=== PATIENT | female | born 1960 | race American Indian/Alaskan Native ===

== ENCOUNTER 2017-05-14 12:36 | Emergency (ER) | payer BC ==
[2017-05-14 12:42] VITALS: BP 136/73
--- NOTE | 2017-05-14 12:59 | Emergency Department Report ---
- General Chief complaint: Medical Clearance Stated complaint: RASH Time Seen by Provider: 05/14/17 12:52 Source: patient Mode of arrival: Ambulatory Limitations: No Limitations - History of Present Illness Initial comments: 56-year-old female past medical history none presents with complaint of itchy rash to right shoulder and back of right thigh. Patient is a nurse in an emergency department. States she may have been exposed to scabies. States that rash has been ongoing for approximately 2 days. Denies fevers chills nausea or vomiting. States she has had encounters with multiple patients with scabies. MD complaint: rash Onset/Timin -: days(s) Location: RUE, RLE Severity: moderate Severity scale (0 -10): 3 Quality: other (itching) Consistency: constant Improves with: none Worsens with: none Context: none Associated symptoms: denies other symptoms Treatments Prior to Arrival: none - Related Data Previous Rx's Medication Instructions Recorded Last Taken Type Permethrin 5% [Acticin 5% CREAM] 1 applicatio TP ONCE #1 tube 05/14/17 Unknown Rx Allergies Allergy/AdvReac Type Severity Reaction Status Date / Time No Known Allergies Allergy Verified 05/14/17 12:43 Abscess Boil [facility] - HPI Chief Complaint: Medical Clearance Stated Complaint: RASH Time Seen by Provider: 05/14/17 12:52 Home Medications: Previous Rx's Medication Instructions Recorded Last Taken Type Permethrin 5% [Acticin 5% CREAM] 1 applicatio TP ONCE #1 tube 05/14/17 Unknown Rx Allergies/Adverse Reactions: Allergies Allergy/AdvReac Type Severity Reaction Status Date / Time No Known Allergies Allergy Verified 05/14/17 12:43 ED Review of Systems ROS: Stated complaint: RASH Other details as noted in HPI Constitutional: denies: chills, fever Eyes: denies: eye pain, eye discharge, vision change ENT: denies: ear pain, throat pain Respiratory: denies: cough, shortness of breath, wheezing Cardiovascular: denies: chest pain, palpitations Endocrine: no symptoms reported Gastrointestinal: denies: abdominal pain, nausea, diarrhea Genitourinary: denies: urgency, dysuria, discharge Musculoskeletal: denies: back pain, joint swelling, arthralgia Skin: as per HPI. denies: rash, lesions Neurological: denies: headache, weakness, paresthesias Psychiatric: denies: anxiety, depression Hematological/Lymphatic: denies: easy bleeding, easy bruising ED Past Medical Hx - Past Medical History Previous Medical History?: No - Surgical History Past Surgical History?: No - Social History Smoking Status: Never Smoker Substance Use Type: None - Medications Home Medications: Home Medications Medication Instructions Recorded Confirmed Last Taken Type Permethrin 5% [Acticin 5% CREAM] 1 applicatio TP ONCE #1 tube 05/14/17 Unknown Rx ED Physical Exam - General Limitations: No Limitations General appearance: alert, in no apparent distress - Head Head exam: Present: atraumatic, normocephalic - Eye Eye exam: Present: normal appearance, PERRL, EOMI - ENT ENT exam: Present: mucous membranes moist - Neck Neck exam: Present: normal inspection, full ROM - Respiratory Respiratory exam: Present: normal lung sounds bilaterally. Absent: respiratory distress - Cardiovascular Cardiovascular Exam: Present: regular rate, normal rhythm. Absent: systolic murmur, diastolic murmur, rubs, gallop - GI/Abdominal GI/Abdominal exam: Present: soft, normal bowel sounds - Extremities Exam Extremities exam: Present: normal inspection - Back Exam Back exam: Present: normal inspection - Neurological Exam Neurological exam: Present: alert, oriented X3, CN II-XII intact, normal gait - Psychiatric Psychiatric exam: Present: normal affect, normal mood - Skin Skin exam: Present: warm, dry, intact, normal color, rash (itchy linear rash on right shoulder and back of right thigh nonvesicular in appearance. No significant erythema or fluctuance.) ED Course Vital Signs 05/14/17 12:39 Temperature 98.5 F Pulse Rate 78 Respiratory 16 Rate Blood Pressure 136/73 O2 Sat by Pulse 99 Oximetry ED Medical Decision Making - Medical Decision Making A/P: Scabies rash 1-will treat patient empirically with permethrin cream based on exposure and clinical appearance of rash 2-Benadryl when necessary, hydrocortisone topical cream when necessary Critical care attestation.: If time is entered above; I have spent that time in minutes in the direct care of this critically ill patient, excluding procedure time. ED Disposition Clinical Impression: Scabies Disposition: DC-01 TO HOME OR SELFCARE Is pt being admited?: No Does the pt Need Aspirin: No Condition: Stable Instructions: Scabies (ED) Prescriptions: Permethrin 5% [Acticin 5% CREAM] 1 applicatio TP ONCE #1 tube Referrals: BRAD CROWE MD [Primary Care Provider] - 3-5 Days Forms: Work/School Release Form(ED) Time of Disposition: 12:53
== END 2017-05-14 13:18 | disposition home or self-care (01) ==
LOC: ED 12:36
DX: B86 Scabies (principal)
CPT/HCPCS: 99282

== ENCOUNTER 2017-06-06 10:02 | Emergency (ER) | payer BC ==
[2017-06-06 10:17] VITALS: BP 147/88
[2017-06-06] MEDS ORDERED: TYLENOL/CODEINE PO ONE (10:29)
[2017-06-06] MEDS ORDERED: DELTASONE PO ONE (10:29)
--- NOTE | 2017-06-06 10:30 | Emergency Department Report ---
HPI - General Chief Complaint: Upper Respiratory Infection Time Seen by Provider: 06/06/17 10:29 - HPI HPI: Patient is a 56-year-old female who presents to ED complaining of sore throat intermittently for the past week, patient states about 2 days, symptoms as worsened.. She admits to nonproductive cough, nasal drainage, congestion. Pt states she hasn't taken Tessalon Perles for coughing with no relief. She had made some mild intermittent generalized aching headache and nasal congestion She denies fever/ /chills/nausea/vomiting/abdominal pain/shortness of breath/ ear pain bilaterally. ED Past Medical Hx - Past Medical History Previous Medical History?: No - Surgical History Past Surgical History?: No Additional Surgical History: tubaligation 1997 - Social History Smoking Status: Never Smoker Substance Use Type: Alcohol - Medications Home Medications: Home Medications Medication Instructions Recorded Confirmed Last Taken Type Permethrin 5% [Acticin 5% CREAM] 1 applicatio TP ONCE #1 tube 05/14/17 Unknown Rx ALBUTEROL Inhaler [ProAir HFA 2 puff IH QID PRN #1 pump 06/06/17 Unknown Rx Inhaler] Acetamin/Codeine 120-12Mg/5 ml 5 ml PO TID PRN #80 ml 06/06/17 Unknown Rx [Tylenol/Codeine] predniSONE [Deltasone] 10 mg PO QDAY #4 tab 06/06/17 Unknown Rx ED Review of Systems ROS: Stated complaint: FLU LIKE SYMPTOMS Other details as noted in HPI Constitutional: denies: chills, fever Eyes: denies: eye pain, eye discharge, vision change ENT: throat pain, congestion. denies: ear pain Respiratory: cough. denies: shortness of breath, wheezing Cardiovascular: denies: chest pain, palpitations Endocrine: no symptoms reported Gastrointestinal: denies: abdominal pain, nausea, vomiting, diarrhea Genitourinary: denies: urgency, dysuria, discharge Musculoskeletal: denies: back pain, joint swelling, arthralgia Skin: denies: rash, lesions, pruritus Neurological: headache. denies: weakness, paresthesias Psychiatric: denies: anxiety, depression Hematological/Lymphatic: denies: easy bleeding, easy bruising Physical Exam - Physical Exam Vital Signs: Vital Signs 06/06/17 10:13 Temperature 99.0 F Pulse Rate 87 Respiratory 20 Rate Blood Pressure 147/88 Blood Pressure 147/88 [Left] O2 Sat by Pulse 99 Oximetry Physical Exam: GENERAL: Alert and oriented x3, no apparent distress, Normal Gait, atraumatic. HEAD: Head is normocephalic and a-traumatic. EYES: Pupils are equal, round, and reactive to light and accommodation. EARS: symetrical, atraumatic, non tender, ear canal clear and moderate cerumen, tympanic membrance non inflamed. gross auditory nml bilaterally. NOSE: Nose symetrical, Nontender,Nares appeared normal. MOUTH:Mouth is well hydrated and without lesions. Tonsils nonerythematous or swollen, Uvula midline, Tongue not elevated. Mucous membranes are moist. Posterior pharynx clear, no exudate or lesions. Patent airways. NECK: Supple. Non edematous, No carotid bruits. No lymphadenopathy or thyromegaly. No C-spine tenderness LUNGS: Symetrical with respiration, No wheezing, no rales or crackles, adventitious lung sounds. HEART: S1, S2 present, regular rate and rhythm without murmur, no rubs, no gallops. Non tender to palpation BACK: Full range of motion, no spinal tenderness, nontender to palpation. NEUROLOGIC: The patient is cooperative with no focal neurologic deficits SKIN: Warm and dry, No lesions, No ulceration or induration present. ED Course Vital Signs 06/06/17 10:13 Temperature 99.0 F Pulse Rate 87 Respiratory 20 Rate Blood Pressure 147/88 Blood Pressure 147/88 [Left] O2 Sat by Pulse 99 Oximetry ED Medical Decision Making - Radiology Data Radiology results: report reviewed, image reviewed cc: DIANA SAMUEL Fluoro Time In Minutes: PA and lateral chest: Cough. There appears to be a focal area of thick linear atelectasis in the left upper lobe. The lungs are otherwise clear and well inflated. The mediastinal contour is unremarkable. Impression: Left upper lobe atelectasis. Transcribed By: ESTELA Dictated By: AMBAR VELASCO MD Electronically Authenticated By: AMBAR VELASCO MD Signed Date/Time: 06/06/17 1100 - Medical Decision Making 56-year-old female presents with upper respiratory infection with atelactasis. ED course: Patient received Tylenol with Codeine to help with cough and prednisone in the ED. Chest x-ray obtained, chest x-ray shows left lung atelectasis, no lung collapse I discussed x-ray findings with the patient and discussed with her she started to experience any symptoms are transient suprapubic or difficulty breathing to return to ED immediately I discussed with patient with viral syndromes last 7-14 days and will resolve on its own. I discussed with patient symptomatic relief, proper rest, vitamin C to boost immunity. I discussed the patient to avoid sick contacts, drink plenty of fluids. I discussed the patient to follow up with PCP as scheduled. I discussed with the patient she can continue taking the Tessalon Pearls as needed for cough I discussed with the patient is symptoms worsens or new symptoms arise to return to ED immediately. Vital signs are normal patient is in no acute or respiratory distress. Critical care attestation.: If time is entered above; I have spent that time in minutes in the direct care of this critically ill patient, excluding procedure time. ED Disposition Clinical Impression: Atelectasis of left lung URI (upper respiratory infection) Qualifiers: URI type: unspecified URI Qualified Code(s): J06.9 - Acute upper respiratory infection, unspecified Disposition: DC- TO HOME OR SELFCARE Is pt being admited?: No Does the pt Need Aspirin: No Condition: Stable Instructions: Upper Respiratory Infection (ED), Acute Bronchitis (ED), Chronic Bronchitis (ED) Additional Instructions: Make sure to follow up with the primary care physician as discussed. Take all your medications as you've been prescribed. If you have any worsening symptoms or develop new symptoms such as shortness of breath or difficulty breathing, please return to ED immediately. Drink plenty of fluids, take vitamin C daily, get appropriate rest Prescriptions: Acetamin/Codeine 120-12Mg/5 ml [Tylenol/Codeine] 5 ml PO TID PRN #80 ml PRN Reason: Pain ALBUTEROL Inhaler [ProAir HFA Inhaler] 2 puff IH QID PRN #1 pump PRN Reason: Shortness Of Breath predniSONE [Deltasone] 10 mg PO QDAY #4 tab Referrals: PRIMARY CAREMD [Primary Care Provider] - 3-5 Days MELANI CABALLERO MD [Referring] - 3-5 Days DARIN VILALLTA IV, MD [Referring] - 3-5 Days Forms: Work/School Release Form(ED) Time of Disposition: 12:18
--- NOTE | 2017-06-06 11:17 | XRay Report ---
PA and lateral chest: Cough. There appears to be a focal area of thick linear atelectasis in the left upper lobe. The lungs are otherwise clear and well inflated. The mediastinal contour is unremarkable. Impression: Left upper lobe atelectasis.
== END 2017-06-06 12:25 | disposition home or self-care (01) ==
LOC: ED 10:02
DX: J98.11 Atelectasis (principal); J06.9 Acute upper respiratory infection, unspecified
CPT/HCPCS: 71046; 99283; J7512